=== PATIENT | male | born 1950 | race Caucasian/White ===

== ENCOUNTER → 2016-11-05 | Day surgery (SDC) | payer BC | END | disposition home or self-care (01) | LOC: SDC 14:22 | DX: N13.2 Hydronephrosis with renal and ureteral calculous obstruction (principal); N35.9 Urethral stricture, unspecified; I10 Essential (primary) hypertension; E11.9 Type 2 diabetes mellitus without complications; Z79.899 Other long term (current) drug therapy; Z79.82 Long term (current) use of aspirin; Z79.52 Long term (current) use of systemic steroids; Z96.653 Presence of artificial knee joint, bilateral; Z89.011 Acquired absence of right thumb | CPT/HCPCS: C1894; C2617; J1885; J2704; J2765; Q9967 ==